=== PATIENT | female | born 1985 | race Caucasian/White ===

== ENCOUNTER 2021-01-12 01:31 | Emergency (ER) | payer BC, SELFPAY ==
--- NOTE | 2021-01-15 13:43 | EKG ---
Test Reason : Blood Pressure : / mmHG Vent. Rate : 100 BPM Atrial Rate : 100 BPM P-R Int : 130 ms QRS Dur : 068 ms QT Int : 342 ms P-R-T Axes : 065 056 044 degrees QTc Int : 441 ms Normal sinus rhythm Normal ECG Confirmed by SHAD CARDENAS ([id number]), telegraph editor SANDEEP BHAGAT ([id number]) on 01/15/2021 1:43:27 PM Referred By: Confirmed By:SHAD CARDENAS
== END 2021-01-12 03:15 | disposition home or self-care (01) ==
LOC: ERS 01:31
DX: R07.89 Other chest pain (principal); F41.9 Anxiety disorder, unspecified; Z79.899 Other long term (current) drug therapy
CPT/HCPCS: 93005